=== PATIENT | male | born 1970 | race Caucasian/White ===

== ENCOUNTER 2016-12-19 00:56 | Emergency (ER) | payer BC, OTHER ==
[2016-12-19] MEDS ORDERED: Lidocaine 1% 20 ML MDV INJECT ONE (02:00)
[2016-12-19] MEDS ORDERED: Diphtheria,Pertussis(Acell),Tetanus Vaccine 0.5 ML Syringe IM ONE (02:04)
[2016-12-19] MEDS ORDERED: Bacitracin Oint 1 GM U/D Packet TOP ONE (02:10)
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
--- NOTE | 2016-12-19 14:34 | CT ---
EXAM DATE: 12/19/16 PATIENT'S AGE: 46 Patient: MORGAN JESSICA Facility: [place], [place] Site . Site : 1970 Study: CT Spine Cervical [id number] 1:58:16 AM Ordering Physician: Doctor Mills Final Report: INDICATION: Status post fall. TECHNIQUE: CT cervical spine without i.v. contrast. Coronal and sagittal reformats were obtained. COMPARISON: None FINDINGS: Vertebral alignment: Alignment is normal. Vertebrae: No acute fractures or aggressive osseous lesions are identified. Discs and facet joints: Disc spaces are within normal limits. The facet joints are unremarkable in appearance. Extraspinal findings: The prevertebral soft tissues are unremarkable in appearance. Lung apices and upper mediastinum are not evaluated on this study. IMPRESSION: 1. No acute cervical spine fracture or abnormal subluxation injury. Dictated by Babar Pichardo MD @ 12/19/2016 2:07:45 AM Dictated by: Babar Pichardo MD @ 12/19/2016 02:07:52 (Electronic Signature) Report Signed by Proxy. [facility]
== END 2016-12-19 02:50 | disposition home or self-care (01) ==
LOC: MW.ED 00:56
DX: S01.81XA Laceration without foreign body of other part of head, initial encounter (principal); S09.90XA Unspecified injury of head, initial encounter; Z23 Encounter for immunization; F17.210 Nicotine dependence, cigarettes, uncomplicated; Y04.0XXA Assault by unarmed brawl or fight, initial encounter
CPT/HCPCS: 12011; 70450; 70450-26; 72125; 72125-26; 90471; 90715; 99282; 99283-25

== ENCOUNTER 2019-07-25 09:47 | Day surgery (SDC) | payer OTHER ==
[~2019-07-25 09:47] MED LIST: Lactated Ringers 1,000 ML IV SCH; Lidocaine 2% 5 ML SDV ONE; Propofol 200 MG/20 ML SDV ONE; Sodium Chloride 0.9% 10 ML SDV IV PRN; Sodium Chloride 0.9% 10 ML Syringe FLUSH PRN; Sodium Chloride 0.9% 2.5 ML Syringe FLUSH PRN; fentaNYL 100 MCG/2 ML SDV ONE
[2019-07-25] MEDS ORDERED: Lactated Ringers 1,000 ML IV SCH (10:30)
--- NOTE | 2019-07-25 11:01 | PCM.PREANE ---
Preanesthetic Assessment - Anesthesia/Transfusion/Family Hx Anesthesia History: Prior Anesthesia Without Reaction Family History of Anesthesia Reaction: No Transfusion History: No Prior Transfusion(s) - Review of Systems General: No Symptoms Pulmonary: No Symptoms Cardiovascular: No Symptoms Gastrointestinal: No Symptoms Neurological: No Symptoms Other: Reports: None - Physical Assessment NPO Status Date: 07/25/19 NPO Status Time: 08:00 Vital Signs: Last Vital Signs Temp 97.0 F 07/25/19 10:05 Pulse 64 07/25/19 10:05 Resp 18 07/25/19 10:05 BP 112/69 07/25/19 10:05 Pulse Ox 96 07/25/19 10:05 Height: 5 ft 10 in Weight: 117.934 kg ASA Class: 2 Mental Status: Alert & Oriented x3 Airway Class: Mallampati = 2 Dentition: Reports: Normal Dentition ROM/Head Extension: Full Lungs: Clear to Auscultation, Normal Respiratory Effort Cardiovascular: Regular Rate, Regular Rhythm - Allergies Allergies/Adverse Reactions: Allergies Allergy/AdvReac Type Severity Reaction Status Date / Time cortisone Allergy Rash Verified 07/19/19 09:42 - Blood Blood Available: No - Anesthesia Plan Pre-Op Medication Ordered: None - Acknowledgements Anesthesia Type Planned: General Anesthesia (tiva) Pt an Appropriate Candidate for the Planned Anesthesia: Yes Alternatives and Risks of Anesthesia Discussed w Pt/Guardian: Yes Pt/Guardian Understands and Agrees with Anesthesia Plan: Yes Additional Comments: APL: smoker PreAnesthesia Questionnaire - Past Health History Medical/Surgical History: Denies Medical/Surgical History HEENT History: Reports: None Cardiovascular History: Reports: High Cholesterol Respiratory History: Reports: Sleep Apnea Other Respiratory History: uses CPAP Gastrointestinal History: Reports: None Genitourinary History: Reports: None Musculoskeletal History: Reports: Arthritis Neurological History: Reports: None Psychiatric History: Reports: None Endocrine/Metabolic History: Reports: Obesity/BMI 30+ Hematologic History: Reports: None Immunologic History: Reports: None Oncologic (Cancer) History: Reports: None Dermatologic History: Reports: Psoriasis - Infectious Disease History Infectious Disease History: Reports: Chicken Pox - Past Surgical History Head Surgeries/Procedures: Reports: None HEENT Surgical History: Reports: None Cardiovascular Surgical History: Reports: None Respiratory Surgical History: Reports: None GI Surgical History: Reports: None Male Surgical History: Reports: None Endocrine Surgical History: Reports: None Neurological Surgical History: Reports: None Musculoskeletal Surgical History: Reports: Arthroscopic Knee Oncologic Surgical History: Reports: None Dermatological Surgical History: Reports: None - SUBSTANCE USE Smoking Status *Q: Former Smoker Tobacco Use Within Last Twelve Months: Cigarettes, Other (See Below) - HOME MEDS Home Medications: Home Meds Aspirin [Children's Aspirin] 81 mg CHEW DAILY 05/03/19 [History] [place]-3/DHA/Epa/Fish Oil [Fish Oil 500 mg Softgel] 2 tab PO DAILY 05/03/19 [ History] Simvastatin 20 mg PO DAILY 05/03/19 [History] - CURRENT (IN HOUSE) MEDS Current Meds: Current Medications Lactated Ringer's (Ringers, Lactated) 1,000 mls @ 100 mls/hr IV ASDIRECTED SHAY Discontinued Medications Fentanyl (Sublimaze) Confirm Administered Dose 100 mcg .ROUTE .STK-MED ONE Stop: 07/25/19 07:04 Lactated Ringer's (Ringers, Lactated) 1,000 mls @ 125 mls/hr IV ASDIRECTED SHAY Lidocaine (Xylocaine-Mpf 2%) Confirm Administered Dose 5 ml .ROUTE .STK-MED ONE Stop: 07/25/19 07:04 Propofol (Diprivan 20 Ml) Confirm Administered Dose 400 mg .ROUTE .STK-MED ONE Stop: 07/25/19 07:04 Sodium Chloride (Saline Flush) 10 ml FLUSH ASDIRECTED PRN PRN Reason: Keep Vein Open Sodium Chloride (Saline Flush) 2.5 ml FLUSH ASDIRECTED PRN PRN Reason: Keep Vein Open Sodium Chloride (Saline Flush) 10 ml FLUSH ASDIRECTED PRN PRN Reason: Keep Vein Open Sodium Chloride (Saline Flush) 2.5 ml FLUSH ASDIRECTED PRN PRN Reason: Keep Vein Open Sodium Chloride (Normal Saline) 10 ml IV ASDIRECTED PRN PRN Reason: IV Use
[2019-07-25] MEDS ORDERED: Glycopyrrolate 0.2 MG/ML SDV ONE (12:29)
--- NOTE | 2019-07-25 12:34 | PCM.OPNOTE ---
- General Post-Op/Procedure Note Date of Surgery/Procedure: 07/25/19 Operative Procedure(s): Screening colonoscopy Findings: 1 sigmoid colon polyp Pre Op Diagnosis: Screening colonoscopy Post-Op Diagnosis: sigmoid colon polyp Anesthesia Technique: MAC Primary Surgeon: Laurence Vines Condition: Good
--- NOTE | 2019-07-25 12:49 | PCM.POSTAN ---
POST ANESTHESIA ASSESSMENT - MENTAL STATUS Mental Status: Alert, Oriented - VITAL SIGNS Vital Signs: Last Vital Signs Temp 36.1 C 07/25/19 12:31 Pulse 61 07/25/19 12:46 Resp 12 07/25/19 12:46 BP 117/74 07/25/19 12:46 Pulse Ox 94 L 07/25/19 12:46 - RESPIRATORY Respiratory Status: Respiratory Rate WNL, Airway Patent, O2 Saturation Stable - CARDIOVASCULAR CV Status: Pulse Rate WNL, Blood Pressure Stable - GASTROINTESTINAL GI Status: No Symptoms - POST OP HYDRATION Hydration Status: Adequate & Stable
--- NOTE | 2019-07-25 13:04 | PCM48HPAN ---
Post Anesthesia Note - EVALUATION WITHIN 48HRS OF ANESTHETIC Vital Signs in Normal Range: Yes Patient Participated in Evaluation: Yes Respiratory Function Stable: Yes Airway Patent: Yes Cardiovascular Function Stable: Yes Hydration Status Stable: Yes Pain Control Satisfactory: Yes Nausea and Vomiting Control Satisfactory: Yes Mental Status Recovered: Yes Vital Signs: Last Vital Signs Temp 36.1 C 07/25/19 12:49 Pulse 62 07/25/19 12:49 Resp 14 07/25/19 12:49 BP 115/76 07/25/19 12:49 Pulse Ox 96 07/25/19 12:49
--- NOTE | 2019-07-26 15:19 | OR ---
SURGEON: LAURENCE VINES MD DATE OF PROCEDURE: 07/25/2019 PREOPERATIVE DIAGNOSIS: Screening colonoscopy. POSTOPERATIVE DIAGNOSIS: Sigmoid colon polyp. PROCEDURE PERFORMED: Screening colonoscopy with polypectomy. PRIMARY SURGEON: Laurence Vines MD ANESTHESIA: MAC. INSTRUMENT USED: Olympus colonoscope. EXTENT OF EXAM: To the cecum. PREPARATION: Good. LIMITATIONS: None. INDICATIONS FOR EXAMINATION: The patient is a 49-year-old male who presents for first-time screening colonoscopy. The patient and I discussed the procedure, expected perioperative course, and risks. He verbalized understanding and wishes to proceed. PROCEDURE IN DETAIL: The patient was brought into the endoscopy suite and placed in the left lateral decubitus position. A time-out was completed verifying the patient's name, age, date of , allergies, and procedure to be performed. Monitored anesthesia care was induced and continuous oxygen was provided via nasal cannula throughout the procedure. After adequate sedation was achieved, a digital rectal exam was performed. This exam was within normal limits. A well-lubricated colonoscope was inserted in the rectum advanced under direct visualization to the level of cecum. The cecum was identified by both visual and anatomic landmarks. A photograph was taken of the cecal cap as well as with the scope retroflexed within the cecum. The scope was then fully withdrawn while examining the color, texture, anatomy, and integrity of the mucosa from the cecum to the anal canal. The patient was found to have a small sessile polyp within the distal sigmoid colon. This was removed in piecemeal fashion using cold biopsy forceps. The scope was then brought into the rectum and retroflexed to allow visualization of the anal canal opening. This appeared normal and a photograph was taken. The scope was straightened out and fully withdrawn. The cecum to anus time was 10 minutes. The patient tolerated procedure well and was transferred to the PACU in stable condition. ENDOSCOPIC DIAGNOSIS: Sigmoid colon polyp. RECOMMENDATIONS: Follow up in clinic in 2 weeks. PAUL CLARKE /[id number]
== END 2019-07-25 13:08 | disposition home or self-care (01) ==
LOC: MW.SDS 09:47
PROVIDERS: ATTEND Surgery
DX: Z12.11 Encounter for screening for malignant neoplasm of colon (principal); D12.5 Benign neoplasm of sigmoid colon; E78.00 Pure hypercholesterolemia, unspecified; E66.9 Obesity, unspecified; F17.210 Nicotine dependence, cigarettes, uncomplicated; Z79.899 Other long term (current) drug therapy; Z88.8 Allergy status to other drugs, medicaments and biological substances; Z79.82 Long term (current) use of aspirin; Z68.37 Body mass index [BMI] 37.0-37.9, adult
CPT/HCPCS: 45380; 88305; J2001; J2704; J3010; J3490; J7120